=== PATIENT | female | born 1955 | race Caucasian/White ===

== ENCOUNTER → 2025-03-26 13:33 | Outpatient (CLI) | payer MEDICARE, SELFPAY ==
--- NOTE | 2025-03-26 13:38 | DI.MRI.S_ITS ---
PROCEDURE: MR KNEE RT WO CON INDICATIONS: Right knee pain TECHNIQUE: Noncontrast sagittal PD fast spin echo and T2 fast spin echo with fat saturation, sagittal 3-D FLASH with fat saturation; coronal T1 spin echo and PD fast spin echo with fat saturation, and axial PD fast spin echo with fat saturation through the knee. COMPARISON: None. FINDINGS: Image quality: Excellent. Bones and cartilage: Nonspecific linear low T1, high T2 in the posterior aspect of the medial tibial plateau some of which related to subchondral cyst and mild bone edema however trabecular injury, bone contusion or less likely nondisplaced tibial plateau fracture could have this appearance. Follow-up suggested. Moderate diffuse cartilaginous thinning in the medial and patellofemoral compartment greater than lateral compartment noted. No definitive focal cartilage defect. Series 9, image 9 well corticated 9 mm calcific density posterior to the lateral femoral condyle may represent intra-articular loose body or fabella. Menisci: Abnormal appearance of the lateral meniscus with oblique complex tear is of the posterior horn into the mid body and truncation, blunting of the anterior horn into the anterior meniscal root. 7 mm multi-septated anterior parameniscal cyst. The lateral meniscus is displaced laterally on the coronal images. Posterior meniscocapsular separation medial and laterally. Otherwise the anterior and posterior horns and mid body of the medial meniscus intact with mild internal globular signal changes in the posterior horn.. Cruciate ligaments: Markedly thin and anterior cruciate ligament with increased T2 weighted signal suggests chronic versus [id number] tear with a few intact fibers. Posterior cruciate ligament is intact. Medial structures: Mild increased medial bursal fluid with edema adjacent to the medial collateral ligament grade 1 injury without tear or retraction. Increased T2 weighted signal, heterogeneous cystic appearance adjacent to the proximal attachment of the medial head of the gastrocnemius. The distal semimembranosus tendon is normal. Lateral structures: Several 5-7 mm cysts adjacent to the lateral collateral ligament and increased T2 weighted signal/thickening of the distal long and short heads of the biceps femoris tendon. The popliteus tendon is mildly thickened with increased T2 weighted signal, injury/strain. Several multi-septated cyst measuring up to 1 cm are noted posterior medially adjacent to the posterior cruciate ligament. Mild fluid adjacent to the iliotibial band which otherwise appears normal. Anterior structures: Increased T2 weighted signal and thickening, injury/strain, tendinopathy distal quadriceps tendon. Patellar ligament is normal. Minimal 3 mm lateral subluxation of the patella otherwise patella alignment is normal. Moderate diffuse nonspecific edema in the infrapatellar fat pad with fluid adjacent to the posterior aspect of the distal patellar ligament. Joint space: Moderate to large knee joint effusion. No significant popliteal cyst IMPRESSION: Complex tears of the lateral meniscus with lateral displacement, parameniscal cysts as discussed above. Moderate knee joint effusion. 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 Linear signal changes in the posterior aspect of the medial tibial plateau as discussed above suspicious for trabecular bone injury, bone contusion or other process. Near complete tear of the anterior cruciate ligament with few intact fibers as discussed above. Injury/strain of medial and lateral collateral ligaments, popliteus tendon, gastrocnemius and multiple posterior ganglion cysts. Other findings as above. Follow-up suggested Dictated by: Eric Stallings M.D. on 03/27/2025 at 9:59 Approved by: Eric Stallings M.D. on 03/27/2025 at 11:40
== END ==
PROVIDERS: PCP Student in an Organized Health Care Education/Training Program; Referring Provider Student in an Organized Health Care Education/Training Program; Visit Provider Student in an Organized Health Care Education/Training Program
DX: S83.271A Complex tear of lateral meniscus, current injury, right knee, initial encounter (principal); S83.511A Sprain of anterior cruciate ligament of right knee, initial encounter; M23.041 Cystic meniscus, anterior horn of lateral meniscus, right knee; S83.411A Sprain of medial collateral ligament of right knee, initial encounter; S83.421A Sprain of lateral collateral ligament of right knee, initial encounter; M67.461 Ganglion, right knee; M25.361 Other instability, right knee; M25.461 Effusion, right knee; M25.561 Pain in right knee
CPT/HCPCS: 73721